=== PATIENT | female | born 1965 | race Caucasian/White ===

== ENCOUNTER 2017-07-13 09:59 | Emergency (ER) | payer OTHER ==
[~2017-07-13] VITALS: Ht 157.5 cm; Wt 86.2 kg
[~2017-07-13 09:59] MED LIST: ANAPROX DS550 M1 PO; CELEBREX200 MG PO; Ecotrin PO; FEOSOL325 MG PO; FLEXERIL10 MG PO; Percocet 5/325,Endoc PO; Senokot S,Pericolace PO; VICODIN 5-3001 EACH PO
[2017-07-13 12:05] VITALS: BP 162/80
== END 2017-07-13 12:06 | disposition home or self-care (01) ==
LOC: EME 09:59 → RME 09:59
DX: S00.83XA Contusion of other part of head, initial encounter (principal); S16.1XXA Strain of muscle, fascia and tendon at neck level, initial encounter; V49.50XA Passenger injured in collision with unspecified motor vehicles in traffic accident, initial encounter; Y92.410 Unspecified street and highway as the place of occurrence of the external cause; Z88.5 Allergy status to narcotic agent
CPT/HCPCS: 99281; 99284